=== PATIENT | male | born 1960 | race Caucasian/White ===

== ENCOUNTER 2020-09-16 23:09 | Inpatient (IN) | payer BC ==
[~2020-09-16] VITALS: Ht 165.1 cm; Wt 66.6 kg
[~2020-09-16 23:09] MED LIST: ALBU90OI INH; CRUTCH3 USE; GUAI600T33; HYDACE5 PO; HYDGUAL120 PO; IBUP800 PO
[2020-09-16 23:57] LABS: BASOPHILS ABSOLUTE AUTO 0.04 K/mm3 (0.00-0.23); BASOPHILS PERCENT AUTO 0 % (0-2); EOSINOPHILS ABSOLUTE AUTO 0.02 K/mm3 (0.00-0.68); EOSINOPHILS PERCENT AUTO 0 % (0-6); Hematocrit 44.4 % (37.0-53.0); IMMATURE GRAN ABSOLUTE AUTO 0.07 K/mm3 (0.00-0.10); IMMATURE GRAN PERCENT AUTO 0 % (0-1); LYMPHOCYTES ABSOLUTE AUTO 1.19 K/mm3 (0.84-5.20); LYMPHOCYTES PERCENT AUTO 7 % (21-46); MONOCYTES ABSOLUTE AUTO 0.74 K/mm3 (0.16-1.47); MONOCYTES PERCENT AUTO 4 % (4-13); Mean Corpuscular HGB 27.9 pg (26.0-34.0); Mean Corpuscular HGB Conc 33.8 g/dL (31.5-36.5); Mean Corpuscular Volume 83 fL (80-100); Mean Platelet Volume 10.1 fL (9.1-12.4); NEUTROPHILS ABSOLUTE AUTO 14.63 K/mm3 (1.96-9.15); NEUTROPHILS PERCENT AUTO 88 % (41-73); Platelet Count 292 K/mm3 (150-400); RDW Coefficient Variation 12.2 % (11.7-14.2); RDW Standard Deviation 36.6 fL (35.1-46.3); Red Blood Cell Count 5.37 M/mm3 (4.30-5.90); White Blood Cell Count 16.69 K/mm3 (4.00-11.30)
[2020-09-17 00:11] LABS: Alanine Aminotransfer (ALT/SGP 121 U/L (12-78); Albumin, Blood 3.8 g/dL (3.4-5.0); Albumin/Globulin Ratio 1.1 (0.8-1.8); Alk Phos 136 U/L (50-136); Anion Gap 8 mmol/L (6-16); Aspartate Aminotrans (AST/SGOT 49 U/L (12-37); Bilirubin, Total 0.5 mg/dL (0.1-1.0); Blood Urea Nitrogen 12 mg/dL (8-24); Bun/Creatinine Ratio 15.8 (12.0-20.0); CO2, Blood 27 mmol/L (21-32); Calcium, Blood 9.1 mg/dL (8.5-10.1); Chloride, Blood 107 mmol/L (98-108); Creatinine, Blood 0.76 mg/dL (0.60-1.20); Globulin, Blood 3.4 g/dL (2.2-4.0); Glomerular Filtration Rate >60 (60-); Glucose, Blood 128 mg/dL (70-99); Potassium, Blood 3.5 mmol/L (3.5-5.5); Sodium, Blood 142 mmol/L (136-145); Total Protein, Blood 7.2 g/dL (6.4-8.2); Troponin I <0.015 ng/mL (0.000-0.040)
[2020-09-17] MEDS ORDERED: Aspir 8181 MG PO (00:12)
[2020-09-17] MEDS ORDERED: ATOR80 PO (00:12)
--- NOTE | 2020-09-17 03:15 | NUR ---
ADMISSION NOTE RECEIVED HAND OFF FROM Evelyn GUEVARA RN USING SBAR. TRANSPORTED TO ROOM VIA STRETCHER. TRANSFERED SELF TO BED WITH STANDBY ASSIST, TOLERATED WELL. AAO X4, NEWSOME, FAC. ORIENTED TO ROOM, CALL SYSTEM, AND POC. REITERATED NEED FOR HIM TO REMAIN NPO FOR SX IN AM, VOICES UNDERSTANDING. LYING IN LOW FOWLERS WITH EYE OPEN. STATES CURRENT PAIN LEVEL OF 3/10 TO EPIGASTRIC AREA. RIGHT AC SL 20G PIV IS PATENT, FLUSHING WITH EASE. ADMISSION ASSESSMENT IN PROGRESS. DENIES FURTHER NEEDS OR WANTS AT THIS TIME. SAFETY MEASURES IN PLACE. WILL CONTINUE TO MONITOR.
[2020-09-17 03:29] LABS: Influenza A, PCR NEGATIVE (NEGATIVE); Influenza B, PCR NEGATIVE (NEGATIVE); Resp Syncytial Virus, PCR NEGATIVE (NEGATIVE); SARS-Cov-2 (COVID-19) PCR, MMC NEGATIVE (NEGATIVE)
--- NOTE | 2020-09-17 05:46 | NUR ---
SHIFT SUMMARY LYING IN LOW FOWLERS WITH EYES CLOSED. HAS RESTED WELL THIS SHIFT AFTER BEING GIVEN PAIN MED X1. NO SIGNIFICANT CHANGES NOTED SINCE ADMISSION. REMAINS AAO X4, NEWSOME, FAC. RESPIRATIONS EVEN AND UNLABORED ON ROOM AIR, ABLE TO MAINTAIN SAT >90%. RIGHT AC PIV IS PATENT, FLUSING WITH EASE WHILE INFUSING LR AT 150ML/HR. IS INDEPENDENT IN ROOM. CURRENTLY DENIES PAIN, DISCOMFORT, OR FURTHER NEEDS. SAFETY MEASURES IN PLACE. WILL CONTINUE TO MONITOR.
--- NOTE | 2020-09-17 14:39 | NUR ---
PT TO OR AT ABOUT 1420
--- NOTE | 2020-09-17 17:49 | NUR ---
POST OP: REPORT RECEIVED FROM KALYAN LEARNING SUPPORT ASSISTANT. PT TO UNIT AT ABOUT 1710. UPON ASSESSMENT PT IN NO VISABLE DISTRESS, A/O, VSS. SURGICAL SITES WNL. PT DENIES N/V, OR PAIN AT THIS TIME. FALLS BACK ASLEEP EASILY. NO ACUTE CONCERNS, CALL LIGHT IN REACH. WILL CTM AND REPORT TO NOC RN
--- NOTE | 2020-09-18 06:03 | NUR ---
SHIFT SUMMARY LYING IN LOW FOWLERS WITH EYES CLOSED. HAS RESTED WELL THIS SHIFT, NO SIGNIFICANT CHANGES NOTED. REMAINS AAO X4, NEWSOME, FAC. RESPIRATIONS EVEN AND UNLABORED ON ROOM AIR, ABLE TO MAINTAIN SAT >90%. RIGHT AC PIV IS PATENT, FLUSING WITH EASE, PIV SL'D AFTER BEING ABLE TO MAINTAIN PO INTAKE. LAP SITES X3 C/D/I. IS INDEPENDENT IN ROOM. CURRENTLY DENIES PAIN, DISCOMFORT, OR FURTHER NEEDS. SAFETY MEASURES IN PLACE. WILL CONTINUE TO MONITOR.
--- NOTE | 2020-09-18 13:47 | NUR ---
DISCHARGE SUMMARY PT A&OX4, VSS, KOKO PO REG DIET, VOIDING WELL, AMBULATING HALLWAYS, DENIES NEED FOR PAIN MEDICATIONS/REP KOKO, SPLINTING WITH COUGH/SNEEZE/LAUGH, OK TO SHOWER, NO TUB/PARDEEP GRIFFIN APPT WITH SURGEON. DC INSTRUCTIONS PROVIDED. PT AND REP UNDERSTANDING THOSE INSTRUCTIONS. IV DC'D.
== END 2020-09-18 13:15 | disposition home or self-care (01) | DRG 419 ==
LOC: ER 23:09 → SURS 09-17 00:55
PROVIDERS: Emergency Medicine; Student in an Organized Health Care Education/Training Program; ADMIT Surgery
PROC: BF03YZZ Plain Radiography of Gallbladder and Bile Ducts using Other Contrast (ICD-10-PCS; 2020-09-17)
PROC: 0FT44ZZ Resection of Gallbladder, Percutaneous Endoscopic Approach (ICD-10-PCS; principal; 2020-09-17 13:15)
DX: K80.00 Calculus of gallbladder with acute cholecystitis without obstruction (principal); Z87.891 Personal history of nicotine dependence; Z79.82 Long term (current) use of aspirin; Z20.822 Contact with and (suspected) exposure to COVID-19; Z86.73 Personal history of transient ischemic attack (TIA), and cerebral infarction without residual deficits
CPT/HCPCS: 0241U; 36415; 71275; 74175; 74300; 80053; 84484; 85025; 88304; 93005; 93010; 96365; 96375; 99285-25; A9270; C1729; J0295; J1100; J1170; J2250; J2270; J2370; J2405; J2704; J3010; J7120; Q9967

== ENCOUNTER 2023-04-16 14:20 | Emergency (ER) | payer OTHER ==
[~2023-04-16] VITALS: Ht 167.6 cm; Wt 59.0 kg
[~2023-04-16 14:20] MED LIST changes: +ATOR80 PO; +Aspir 8181 MG PO
[2023-04-16 14:24] VITALS: BP 148/88
[2023-04-16] MEDS ORDERED: CEPH500 PO (16:16)
== END 2023-04-16 16:19 | disposition home or self-care (01) ==
LOC: ER 14:20
DX: S61.217A Laceration without foreign body of left little finger without damage to nail, initial encounter (principal); W26.8XXA Contact with other sharp object(s), not elsewhere classified, initial encounter; Z79.82 Long term (current) use of aspirin; Z86.73 Personal history of transient ischemic attack (TIA), and cerebral infarction without residual deficits; Z79.899 Other long term (current) drug therapy
CPT/HCPCS: 12001; 73140; 99283-25

== ENCOUNTER 2023-10-03 15:09 | Emergency (ER) | payer OTHER ==
[~2023-10-03] VITALS: Ht 167.6 cm; Wt 62.6 kg
[~2023-10-03 15:09] MED LIST changes: +CEPH500 PO
[2023-10-03 15:49] VITALS: BP 138/86
[2023-10-03] MEDS ORDERED: HYDR1TAB94 PO (16:46)
== END 2023-10-03 16:53 | disposition home or self-care (01) ==
LOC: ER 15:09
DX: S22.32XA Fracture of one rib, left side, initial encounter for closed fracture (principal); W17.89XA Other fall from one level to another, initial encounter; Z79.899 Other long term (current) drug therapy; Z79.82 Long term (current) use of aspirin
CPT/HCPCS: 71100; 99283-25

== ENCOUNTER 2024-08-05 13:34 | Inpatient (IN) | payer OTHER ==
[~2024-08-05] VITALS: Ht 167.6 cm; Wt 56.4 kg
[~2024-08-05 13:34] MED LIST changes: +HYDR1TAB94 PO
[2024-08-05 13:57] LABS: BASOPHILS ABSOLUTE AUTO 0.04 K/mm3 (0.00-0.23); BASOPHILS PERCENT AUTO 0 % (0-2); EOSINOPHILS ABSOLUTE AUTO 0.06 K/mm3 (0.00-0.68); EOSINOPHILS PERCENT AUTO 1 % (0-6); Hematocrit 40.2 % (37.0-53.0); Hemoglobin 13.7 g/dL (13.5-17.5); IMMATURE GRAN ABSOLUTE AUTO 0.03 K/mm3 (0.00-0.10); IMMATURE GRAN PERCENT AUTO 0 % (0-1); LYMPHOCYTES ABSOLUTE AUTO 1.55 K/mm3 (0.84-5.20); LYMPHOCYTES PERCENT AUTO 17 % (21-46); MONOCYTES ABSOLUTE AUTO 0.68 K/mm3 (0.16-1.47); MONOCYTES PERCENT AUTO 8 % (4-13); Mean Corpuscular HGB 29.1 pg (26.0-34.0); Mean Corpuscular HGB Conc 34.1 g/dL (31.5-36.5); Mean Corpuscular Volume 86 fL (80-100); Mean Platelet Volume 9.3 fL (9.1-12.4); NEUTROPHILS ABSOLUTE AUTO 6.69 K/mm3 (1.96-9.15); NEUTROPHILS PERCENT AUTO 74 % (41-73); Platelet Count 253 K/mm3 (150-400); RDW Coefficient Variation 12.4 % (11.7-14.2); RDW Standard Deviation 38.8 fL (35.1-46.3); White Blood Cell Count 9.05 K/mm3 (4.00-11.30)
[2024-08-05 14:20] LABS: Albumin, Blood 3.7 g/dL (3.4-5.0); Albumin/Globulin Ratio 1.1 (0.8-1.8); Bilirubin, Total 0.3 mg/dL (0.1-1.0); Bun/Creatinine Ratio 20.1 (12.0-20.0); Calcium, Blood 9.2 mg/dL (8.5-10.1); Creatinine, Blood 0.84 mg/dL (0.60-1.20); Globulin, Blood 3.4 g/dL (2.2-4.0); Total Protein, Blood 7.1 g/dL (6.4-8.2)
[2024-08-05] MEDS ORDERED: Nitroglycerin 0.4 MG SUBL ONE (15:09)
[2024-08-05] MEDS ORDERED: PROZAC40 MG PO (15:19)
[2024-08-05] MEDS ORDERED: Nitroglycerin 0.4 MG SUBL SL ONE (15:20)
[2024-08-05] MEDS ORDERED: Aspirin 81 MG Chew PO ONE (15:30)
[2024-08-05] MEDS ORDERED: NITROGLYCERIN IV ONE (15:30)
[2024-08-05] MEDS ORDERED: DEXTROSE IV ONE (15:30)
[2024-08-05 16:48] LABS: Anti-Xa UFH, PHA Monitoring <0.10 IU/mL; International Normalized Ratio 0.96; Prothrombin Time Results 10.3 Sec (9.7-11.5)
[2024-08-05] MEDS ORDERED: Dose Adjust by Pharmacy XX STA ×2 (16:53→23:08)
[2024-08-05] MEDS ORDERED: Heparin Sodium,Porcine/0.5 NS 500 ML IV SCH (16:55)
[2024-08-05] MEDS ORDERED: Heparin Sodium 5000 Units/ML 1ML MDV IV ONE (16:55)
[2024-08-05] MEDS ORDERED: Clopidogrel Bisulfate 300 MG Cap PO ONE (17:30)
[2024-08-05] MEDS ORDERED: Ondansetron HCl 2 MG / ML 2ML Vial IV PRN (17:35)
[2024-08-05] MEDS ORDERED: Acetaminophen 325 MG TABLET PO PRN (17:35)
[2024-08-05] MEDS ORDERED: FLU VACC TS2024-25(6MOS UP)/PF 45 MCG/0.5 ML SYRINGE IM ONE (20:00)
[2024-08-05] MEDS ORDERED: Atorvastatin 40 MG Tab PO SCH (21:00)
[2024-08-05] MEDS ORDERED: Metoprolol Tartrate 25 MG Tab PO SCH (21:00)
[2024-08-06] VITALS (8 sets, daily range): BP systolic 103–144; BP diastolic 61–97
[2024-08-06 04:26] LABS: Hematocrit 39.7 % (37.0-53.0); Hemoglobin 13.7 g/dL (13.5-17.5); Mean Corpuscular HGB 29.1 pg (26.0-34.0); Mean Corpuscular HGB Conc 34.5 g/dL (31.5-36.5); Mean Corpuscular Volume 85 fL (80-100); Mean Platelet Volume 9.6 fL (9.1-12.4); Platelet Count 252 K/mm3 (150-400); RDW Coefficient Variation 12.2 % (11.7-14.2); RDW Standard Deviation 37.6 fL (35.1-46.3); White Blood Cell Count 9.26 K/mm3 (4.00-11.30)
[2024-08-06 04:56] LABS: Alanine Aminotransfer (ALT/SGP 28 U/L (12-78); Albumin, Blood 3.2 g/dL (3.4-5.0); Albumin/Globulin Ratio 0.9 (0.8-1.8); Alk Phos 82 U/L (50-136); Anion Gap 10 mmol/L (3-11); Aspartate Aminotrans (AST/SGOT 83 U/L (12-37); Bilirubin, Total 0.6 mg/dL (0.1-1.0); Blood Urea Nitrogen 14 mg/dL (8-24); Bun/Creatinine Ratio 18.9 (12.0-20.0); CHOL/HDL RATIO 2.2; CO2, Blood 25 mmol/L (21-32); Chloride, Blood 111 mmol/L (98-108); Cholesterol 188 mg/dL (50-200); Creatinine, Blood 0.74 mg/dL (0.60-1.20); Globulin, Blood 3.5 g/dL (2.2-4.0); Glomerular Filtration Rate 102 (60-); Glucose, Blood 99 mg/dL (70-99); HDL Cholesterol 85 mg/dL (>39); LDL/HDL RATIO 1.1; Low Density Lipoprotein Chol 94 mg/dL (0-110); Magnesium, Blood 2.1 mg/dL (1.6-2.4); Potassium, Blood 3.9 mmol/L (3.5-5.5); Sodium, Blood 142 mmol/L (136-145); Total Protein, Blood 6.7 g/dL (6.4-8.2); Triglycerides 43 mg/dL (30-160); Very Low Density Lipoprot Chol 8 mg/dL (6-32)
[2024-08-06] MEDS ORDERED: Clarify Drug Order XX ONE (06:40)
[2024-08-06] MEDS ORDERED: Aspirin 81 MG Chew PO SCH (09:00)
[2024-08-06] MEDS ORDERED: Clopidogrel Bisulfate 75 MG Tab PO SCH (09:00)
[2024-08-06] MEDS ORDERED: NS 250 ML IV ONE (09:10)
[2024-08-06] MEDS ORDERED: NS 1,000 ML IV ONE ×2 (09:10→09:36)
[2024-08-06] MEDS ORDERED: Heparin Sodium 1000 Units/ML 10ML MDV ONE ×2 (09:10→09:36)
[2024-08-06] MEDS ORDERED: Verapamil HCL 2.5 MG/ML 2ML Injection ONE (09:10)
--- NOTE | 2024-08-06 09:26 | NUR ---
PT TO CITY ASSESSOR WITH CITY ASSESSOR RNS
[2024-08-06] MEDS ORDERED: FentaNYL Citrate 50 MCG/ML 2 ML Injection ONE (09:35)
[2024-08-06] MEDS ORDERED: Midazolam HCl 1MG / ML 2ML Vial ONE (09:35)
[2024-08-06] MEDS ORDERED: Tirofiban HCL Monohydrate 3.75 MG/15 ML Vial ONE (10:00)
[2024-08-06] MEDS ORDERED: Clopidogrel Bisulfate 75 MG Tab ONE (10:21)
[2024-08-06] MEDS ORDERED: Aspirin 81 MG Chew ONE (10:24)
--- NOTE | 2024-08-06 10:41 | NUR ---
PT RETURNED TO ICU from senior label specialist. TR band in place with 12 mls of air. Slight blood noted at site, however senior label specialist RN states that is from placement.
[2024-08-06] MEDS ORDERED: Lisinopril 5 MG Tab PO SCH (11:00)
[2024-08-06] MEDS ORDERED: FentaNYL Citrate 50 MCG/ML 2 ML Injection IV PRN (11:10)
--- NOTE | 2024-08-06 16:33 | NUR ---
TRANSFER/SHIFT SUMMARY: Pt transferred to PCU 7 from ICU 5 via wheelchair. Pt stated that he would notify his , Zahida, of the transfer. He was up in the chair for a bit this afternoon; Pt is independently ambulatory. He is voiding without difficulty using the urinal. Hesham did report 10/10 chest pain shortly after returning from salvage laborer. Dr Pacheco was notified and EKG obtained. After reviewing EKG, provider ordered fentanyl. Pt received one dose of PRN fentanyl and tylenol which resolved pain. He is tolerating a cardiac diet well. Spouse was updated at bedside after catheterization. TR band was deflated without issues and insertion site dressed with tegaderm. Pt was educated on TR band recovery and weight bearing limitations of right arm.
--- NOTE | 2024-08-06 17:00 | NUR ---
arrival pcu/shift summary patient arrived to pcu at approx 1636 from icu in a wheel chair, and patient transfered independently into pcu bed. vital signs stable. tele sinus don 60s. spo2 >95% on room air. patient is alert and oriented x4. neuro is intact. patient is able to make needs known and uses call ligth appropriately. patient is independent in adls. patient reports chest pressure rated at 3 out of 10, with 10 being the worst. patient received iv fentanyl and upon reassessment chest pressure is gone. denies shortness of breath. lung sounds clear. patient has right radial site from pci today, and site is recovered with tegaderm in place and no tenderness, bleeding, swelling or hematoma noted. see shift assessment for further detials.
[2024-08-07 03:30] VITALS: BP 133/88
--- NOTE | 2024-08-07 04:27 | NUR ---
SHIFT SUMMARY 64 YR M TRANSFERED TO PCU FROM ICU ON 08/06/24. FULL CODE. NO ACUTE CHANGES THIS SHIFT. PT IS A&O X 4 AND INDEPENDANT IN THE ROOM. NO C/O PAIN OR DISCOMFORT THIS SHIFT. PT HAS SLEPT FOR THE ENTIRETY OF THIS SHIFT. VSS. RIGHT RADIAL SITE WNL. BED IN LOW POSITION AND CALL LIGHT IN REACH.
[2024-08-07 05:35] LABS: Albumin, Blood 3.4 g/dL (3.4-5.0); Anion Gap 10 mmol/L (3-11); Blood Urea Nitrogen 16 mg/dL (8-24); Bun/Creatinine Ratio 21.2 (12.0-20.0); CO2, Blood 23 mmol/L (21-32); Calcium, Blood 8.9 mg/dL (8.5-10.1); Chloride, Blood 111 mmol/L (98-108); Creatinine, Blood 0.75 mg/dL (0.60-1.20); Glomerular Filtration Rate 102 (60-); Glucose, Blood 104 mg/dL (70-99); Phosphorus, Blood 2.7 mg/dL (2.5-4.9); Sodium, Blood 140 mmol/L (136-145)
[2024-08-07 08:15] VITALS: BP 137/90
[2024-08-07] MEDS ORDERED: Enoxaparin 40 MG/0.4 ML SYR SC SCH (09:00)
--- NOTE | 2024-08-07 10:16 | NUR ---
am note this rn assumed care from len ceballos at 0700, and did bedside shift report. vital signs stable. tele sinus rhythm 70s. patient is alert and oriented x4. neuro is intact. patient is independent in the room. patient is able to make needs known and uses call light appropriately. denies pain, chest pain/pressure or shortness of breath. see shift assessment for further detials. this rn went over patient education for medications and patient asking how he had the plaque build up. this rn explained and adebayo pictures for the patient.
[2024-08-07 11:34] VITALS: BP 114/81
[2024-08-07] MEDS ORDERED: CLOP75 PO (11:59)
[2024-08-07] MEDS ORDERED: ATOR80 PO (11:59)
[2024-08-07] MEDS ORDERED: ASPI81CH PO (11:59)
[2024-08-07] MEDS ORDERED: Lisinopril2.5 MG PO (12:00)
--- NOTE | 2024-08-07 12:51 | NUR ---
discharge education this rn went over discharge education with the patient. this rn went over new medications, aspirin, lipitor, plavix, and lisinipril. pateint verbalized understanding of taking each medication and knows to take lipitor this evening. the medications faxed to [facility] and rexeived a fax saying they got it. this rn went over radial site care. patient verbalized understanding. patient knows to call and follow up with geriatrician and pcp. patient awaiting for ride. patient dressed and belongings gathered
== END 2024-08-07 13:06 | disposition home or self-care (01) | DRG 322 ==
LOC: ER 13:34 → ERHOLD 17:25 → PCU 08-06 03:21 → ERHOLD 08-06 03:21 → ICUE 08-06 07:51 → PCU 08-06 16:38
PROVIDERS: Student in an Organized Health Care Education/Training Program; ADMIT Internal Medicine
PROC: 027034Z Dilation of Coronary Artery, One Artery with Drug-eluting Intraluminal Device, Percutaneous Approach (ICD-10-PCS; principal; 2024-08-06)
PROC: B2111ZZ Fluoroscopy of Multiple Coronary Arteries using Low Osmolar Contrast (ICD-10-PCS; 2024-08-06)
PROC: 4A023N7 Measurement of Cardiac Sampling and Pressure, Left Heart, Percutaneous Approach (ICD-10-PCS; 2024-08-06)
DX: I21.4 Non-ST elevation (NSTEMI) myocardial infarction (principal); F41.9 Anxiety disorder, unspecified; I25.10 Atherosclerotic heart disease of native coronary artery without angina pectoris; Z86.73 Personal history of transient ischemic attack (TIA), and cerebral infarction without residual deficits; Z90.49 Acquired absence of other specified parts of digestive tract; Z98.890 Other specified postprocedural states; F32.A Depression, unspecified; Z79.02 Long term (current) use of antithrombotics/antiplatelets; Z79.82 Long term (current) use of aspirin; Z79.899 Other long term (current) drug therapy; Z95.5 Presence of coronary angioplasty implant and graft
CPT/HCPCS: 36415; 71046; 76937; 80053; 80061; 80069; 83036; 83690; 83735; 84100; 84484; 85025; 85027; 85347; 85520; 85610; 93005; 93010; 93306; 93454; 96374; 96375; 99152; 99153; 99285-25; A9270; C1725; C1769; C1874; C1887; C1894; C9600; J1644; J1650; J2250; J3010; J3246; J7030; J7050; Q9967

== ENCOUNTER 2025-06-20 10:46 | Emergency (ER) | payer OTHER ==
[~2025-06-20] VITALS: Ht 167.6 cm; Wt 57.6 kg
[~2025-06-20 10:46] MED LIST changes: +ASPI81CH PO; +CLOP75 PO; +Lisinopril2.5 MG PO; +PROZAC40 MG PO
[2025-06-20] MEDS ORDERED: 8 HOUR ACETAMI650 MG PO (11:02)
[2025-06-20 11:18] LABS: BASOPHILS ABSOLUTE AUTO 0.03 K/mm3 (0.00-0.23); BASOPHILS PERCENT AUTO 0 % (0-2); EOSINOPHILS ABSOLUTE AUTO 0.04 K/mm3 (0.00-0.68); EOSINOPHILS PERCENT AUTO 1 % (0-6); Hematocrit 42.0 % (37.0-53.0); Hemoglobin 14.5 g/dL (13.5-17.5); IMMATURE GRAN ABSOLUTE AUTO 0.01 K/mm3 (0.00-0.10); IMMATURE GRAN PERCENT AUTO 0 % (0-1); LYMPHOCYTES ABSOLUTE AUTO 1.35 K/mm3 (0.84-5.20); LYMPHOCYTES PERCENT AUTO 16 % (21-46); MONOCYTES ABSOLUTE AUTO 0.53 K/mm3 (0.16-1.47); MONOCYTES PERCENT AUTO 6 % (4-13); Mean Corpuscular HGB Conc 34.5 g/dL (31.5-36.5); Mean Corpuscular Volume 86 fL (80-100); NEUTROPHILS ABSOLUTE AUTO 6.28 K/mm3 (1.96-9.15); NEUTROPHILS PERCENT AUTO 76 % (41-73); NRBC ABSOLUTE 0.00 K/mm3 (0.00-0.02); NRBC Auto 0.0 /100 WBC (0.0-0.2); Platelet Count 269 K/mm3 (150-400); RDW Coefficient Variation 12.6 % (11.7-14.2); RDW Standard Deviation 39.7 fL (35.1-46.3)
[2025-06-20 11:47] LABS: Alanine Aminotransfer (ALT/SGP 33.0 U/L (12-78); Albumin, Blood 4.0 g/dL (3.4-5.0); Albumin/Globulin Ratio 1.2 (0.8-1.8); Anion Gap 6.0 mmol/L (3-11); Aspartate Aminotrans (AST/SGOT 26.0 U/L (12-37); Bilirubin, Total 0.4 mg/dL (0.1-1.0); Blood Urea Nitrogen 10.0 mg/dL (8-24); CO2, Blood 28.0 mmol/L (21-32); Calcium, Blood 9.1 mg/dL (8.5-10.1); Chloride, Blood 108.0 mmol/L (98-108); Creatinine, Blood 0.64 mg/dL (0.60-1.20); Globulin, Blood 3.3 g/dL (2.2-4.0); Glucose, Blood 99.0 mg/dL (70-99); Potassium, Blood 3.9 mmol/L (3.5-5.5); Sodium, Blood 138.0 mmol/L (136-145); Total Protein, Blood 7.3 g/dL (6.4-8.2)
[2025-06-20 15:20] VITALS: BP 124/76
== END 2025-06-20 15:21 ==
LOC: ER 10:46
PROVIDERS: Emergency Medicine
DX: R07.9 Chest pain, unspecified (principal); I25.10 Atherosclerotic heart disease of native coronary artery without angina pectoris; I25.2 Old myocardial infarction; Z79.82 Long term (current) use of aspirin; Z79.899 Other long term (current) drug therapy
CPT/HCPCS: 71045; 80053; 84484; 85025; 99285-25